=== PATIENT | male | born 1975 | race Caucasian/White ===

== ENCOUNTER 2017-01-14 14:00 | Inpatient (IN) | payer OTHER ==
--- NOTE | ~2017-01-14 | PA ---
Unit #: [id number] #: [id number] Patient: KHLOE GRAY [id number] [facility] [address] [place] [address] [id number] MR#: [id number] NAME: KHLOE GRAY. ROOM: [facility] Age: 42 Sex: M Admission Date: 01/14/2017 : 1975 Date of Assessment: 01/15/2017 Attending Physician: Khloe Montoya M.D. Admitting Physician: Khloe Montoya M.D. Primary Care Physician: Tamanna Doctor Not In System PSYCHIATRIC ASSESSMENT DATE OF ASSESSMENT 01/15/2017. INFORMANTS Patient, reliable; OLOP, reliable. CHIEF COMPLAINT Opioid withdrawal. HISTORY OF PRESENT ILLNESS Mr. Gray is a 42-year-old man, who reports he has been on pain medications for 10 years due to significant history of back pain and has been taking Xanax 2 mg b.i.d. for years for anxiety. He stopped taking his morphine and Roxicet in November and began using Suboxone, disliking the long-term effects of opioids. He has had increasing detox symptoms after he stopped Suboxone and has been nauseous with multiple GI symptoms. He has some depression, but denied active suicidal ideation, intent, or plan. He was admitted for polysubstance detox. PAST PSYCHIATRIC HISTORY As noted, the patient has an iatrogenic addiction to opioids. He reports a history of some depression and anxiety and is taking alprazolam 2 mg b.i.d. from his primary care physician. FAMILY PSYCHIATRIC HISTORY None reported. SOCIAL HISTORY The patient denied a history of childhood abuse or neglect. He is a single, heterosexual man. He reports a previous DUI charge due to being over sedated on his opioids, but no other criminal history. He is a high-school graduate, who is working as a truck terminal manager, but is in the process of trying to get long-term disability. He is currently living with his mother with impaired financial stability. PAST MEDICAL HISTORY Significant for hypertension, arthritis, anemia, chronic back pain and low testosterone. MEDICATIONS Lisinopril, metoprolol, Lasix, potassium, vitamin D, folic acid, gabapentin and Phenergan. Unit #: [id number] #: [id number] Patient: KHLOE GRAY ALLERGIES Nonsteroidal antiinflammatories. SUBSTANCE ABUSE HISTORY The patient has a history of being on chronic opioids, but has no history of abuse or dependence. MENTAL STATUS EXAMINATION The patient presented as a mildly disheveled man who appeared his stated age. He was polite and cooperative with the examination. His speech was spontaneous and easily understood. Musculoskeletal examination demonstrated mild psychomotor agitation. His mood was anxious with a congruent affect. He was alert and fully oriented. His memory and concentration were intact. His thought processes were goal directed with no active psychosis. He denied suicidal ideation, intent, or plan. Insight and judgment were fair. Fund of knowledge and abstraction, fair. ASSETS AND LIABILITIES The patient has stable housing, is employable and is applying for disability. Liabilities include physician-induced addiction and lack of other treatment. ADMITTING DIAGNOSES AXIS I: 1. Opioid dependence with withdrawal, uncomplicated, F11.23. 2. Benzodiazepine dependence. 3. Depressive disorder, not otherwise specified. AXIS II: No diagnosis. AXIS III: Chronic pain, hypertension, degenerative disk disease, early congestive heart failure, history of nausea, and history of neuropathy. AXIS IV: AXIS V: PSYCHIATRIC PLAN The patient was admitted and placed on the opioid detox protocol. Suboxone was discontinued. After discussion of options with the patient, I elected to continue alprazolam 2 mg twice daily, unchanged and continue his home medications, otherwise unchanged. We will consult our medical group for pain control options. TREATMENT GOALS Establishment of opioid free status, improvement in insight, and improvement in coping skills. DISCHARGE PLAN Follow up with primary care physician. ESTIMATED LENGTH OF STAY 5 days. Dictated by... Khloe Montoya M.D. [facility] Unit #: [id number] #: [id number] Patient: KHLOE GRAY TD: 01/16/2017 01:46 JOB #: [id number] PSYCHIATRIC ASSESSMENT Page 1 of 1 X Khloe Montoya MD PSYCHIATRIC ASSESSMENT
--- NOTE | ~2017-01-14 | DS ---
Unit #: [id number] #: [id number] Patient: KHLOE GREEN [id number] [place] [address] [id number] I MR#: [id number] NAME: KHLOE GREEN. ROOM: [facility] Age: 42 Sex: M Admission Date: 01/14/2017 : 1975 Discharge Date: 01/19/2017 Attending Physician: Khloe Montoya M.D. Primary Care Physician: Generic Doctor Not In System DISCHARGE SUMMARY REASON FOR ADMISSION Khloe is a 42-year-old man who has been on pain medications for the past 10 years and Xanax for about the same time for anxiety. The patient reported he has been trying to get off his pain medications, not liking their long-term effects, and had switched from morphine and Roxicet to Suboxone. He has stopped this medication and has had increasing detox symptoms. He had some depression, but no suicidal ideation, intent, or plan and was admitted for opioid detox. DIAGNOSTIC STUDIES LABORATORY RESULTS: CMP demonstrated no significant elevation in liver functions. Urine drug screen was positive for benzodiazepines. HOSPITAL COURSE Khloe was admitted and placed on the opioid detox protocol. Alprazolam was continued unchanged to avoid polysubstance detox and the patient was provided with Seroquel 100 mg at bedtime and Remeron 30 mg at bedtime for depression and insomnia. He tolerated these medications reasonably well, although his sleep remained somewhat disturbed due to his ongoing detox symptoms. He was affable and pleasant throughout the hospitalization. On the date of discharge, he contracted for safety in the outpatient setting. DISCHARGE DIAGNOSES AXIS I: Opioid dependence with withdrawal, uncomplicated; major depressive disorder; benzodiazepine dependence. AXIS II: No diagnosis. AXIS III: Chronic pain, hypertension, degenerative disk disease, history of neuropathy, history of early congestive heart failure. AXIS IV: AXIS V: DISCHARGE INSTRUCTIONS Follow up with primary care physician. DISCHARGE MEDICATIONS Remeron 30 mg at bedtime for depression and Seroquel 100 mg at bedtime for insomnia. All primary care medicines were continued unchanged. CONDITION AT DISCHARGE Improved. Unit #: [id number] #: [id number] Patient: KHLOE GREEN PROGNOSIS Fair to good. DIET AND ACTIVITY Per primary care doctor. Dictated by... Khloe Montoya M.D. [facility]/modl TD: 01/20/2017 00:18 JOB #: [id number] DISCHARGE SUMMARY Page 1 of 1 X Khloe Montoya MD DISCHARGE SUMMARY
--- NOTE | ~2017-01-14 | PN ---
Unit #: [id number] #: [id number] Patient: KHLOE GRAY [id number] [facility] [address] [place] [address] [id number] I MR#: [id number] NAME: KHLOE GRAY. ROOM: 86 Age: 42 Sex: M Admission Date: 01/14/2017 : 1975 Attending Physician: Khloe Montoya M.D. Admitting Physician: Khloe Montoya M.D. Primary Care Physician: Generic Doctor Not In System [facility] PROGRESS NOTES DATE OF SERVICE 01/16/2017 DISCUSSION Mr. Gray continues to complain of significant difficulty sleeping. He is having multiple opiate detox symptoms today including cramping, diarrhea, nausea, insomnia, and other issues that. He is pleasant and cooperative otherwise. He is alert and fully oriented. His memory and concentration are intact. His thought processes are logical with no psychosis and no active SI. He does wish to be reinitiated on an antidepressant medication as he says he has been off of one for a long time and feels that would help his mood. ASSESSMENT Opioid dependence, major depression. PLAN We will change trazodone to Seroquel 100 mg at bedtime as needed for insomnia to improve control of insomnia related to detox. I will add Remeron 30 mg at bedtime for depression. Dictated by... Khloe Montoya M.D. [facility]/to TD: 01/17/2017 15:23 JOB #: [id number] [facility] PROGRESS NOTES Page 1 of 1 X Khloe Montoya MD PROGRESS NOTE
--- NOTE | ~2017-01-14 | HP ---
Unit #: [id number] #: [id number] Patient: LUIS ALBETRO GREEN [id number] [facility] [address] [place] [address] [id number] I MR#: [id number] NAME: LUIS ALBERTO GREEN. ROOM: 86 Age: 42 Sex: M Admission Date: 01/14/2017 : 1975 Attending Physician: Luis Alberto Montoya M.D. Admitting Physician: Luis Alberto Montoya M.D. Primary Care Physician: Generic Doctor Not In System HISTORY AND PHYSICAL HISTORY OF PRESENT ILLNESS The patient is a 42-year-old male who has been [facility]. PAST MEDICAL HISTORY 1. Chronic back pain. 2. Degenerative disk disease. 3. Hypertension. 4. Reports early congestive heart failure. 5. Neuropathy. 6. Nausea. PAST SURGICAL HISTORY Denies. ALLERGIES No known allergies. HOME MEDICATIONS 1. Neurontin 600 mg p.o. 4 times daily. 2. Lasix 3 mg p.o. daily. 3. Lisinopril 20 mg p.o. daily. 4. Metoprolol tartrate 50 mg p.o. b.i.d. 5. Potassium 20 mEq daily. 6. Vitamin D 50,000 units p.o. every 7 days. 7. Folic acid 1 mg p.o. daily. 8. Phenergan 25 mg p.o. q. 6 hours p.r.n. nausea. 9. Suboxone 8 mg 2 strips sublingual daily. 10. Xanax 2 mg p.o. b.i.d. FAMILY HISTORY Noncontributory. SOCIAL HISTORY The patient lives with his mother. He denies tobacco use. He said he has not used alcohol in many years. He does not endorse using p.o. morphine. REVIEW OF SYSTEMS CONSTITUTIONAL: Denies fever or chills. HEENT: Denies sore throat, ear pain, or runny nose. CARDIOVASCULAR: Denies chest pain, irregular heart rhythm, or palpitations. CHEST: Denies shortness of breath or cough. No hemoptysis. Unit #: [id number] #: [id number] Patient: LUIS ALBERTO GREEN GI: Denies vomiting, diarrhea, or chronic constipation. Endorses nausea. ENDOCRINE: Denies increased thirst or urination. Denies any significant recent weight loss of gain. : Denies dysuria, frequency, or hematuria. SKIN: Denies any rashes. HEMATOLOGIC: Denies increased bleeding or bruising. MUSCULOSKELETAL: Denies any hot, swollen joints. No generalized pain. NEUROLOGIC: Denies problems with speech or vision, numbness, weakness, or tingling. Denies loss of bowel or bladder control. PHYSICAL EXAMINATION GENERAL: The patient is awake, alert, in no acute distress. VITAL SIGNS: Temperature 98.5, heart rate 75, respirations 16, blood pressure 130/79. He is 5 feet 8 inches and weighs 253 pounds. HEENT: Head is atraumatic, normocephalic. Pupils are equal, round, and reactive. Extraocular movements are intact. No drainage from ears or nose. NECK: Supple. Trachea is midline. HEART: Regular rate and rhythm. LUNGS: Clear. ABDOMEN: Soft, nontender, nondistended. : Not done. SKIN: Warm, dry without any rashes or lesions. EXTREMITIES: No clubbing, cyanosis, or edema. NEUROLOGIC: Patient is awake. Cranial nerves II through XII are intact. No focal deficits. Sensory and motor function: Grossly normal. Coordination: Gait normal. Deep tendon reflexes intact. IMPRESSION 1. Psychiatric admission. 2. Hypertension. RECOMMENDATIONS PSYCHIATRIC: Per psychiatrist. MEDICAL: Hypertension: We will continue home medicine. I see no contraindication to patient participating in the facility activities. MEDICAL PROGNOSIS Fair. MEDICAL CONDITION Stable. Dictated by... Sonia Jj A.P.R.N. for Iesha Matthews TD: 01/15/2017 11:16 JOB #: [id number] Unit #: [id number] #: [id number] Patient: LUIS ALBERTO GREEN HISTORY AND PHYSICAL Page 1 of 1 X Sonia Jj APRN X HISTORY AND PHYSICAL
--- NOTE | ~2017-01-14 | PN ---
Unit #: [id number] #: [id number] Patient: KHLOE GREEN [id number] [facility] [address] [place] [address] [id number] I MR#: [id number] NAME: KHLOE GREEN. ROOM: P186 Age: 42 Sex: M Admission Date: 01/14/2017 : 1975 Attending Physician: Khloe Montoya M.D. Admitting Physician: Khloe Montoya M.D. Primary Care Physician: Generic Doctor Not In System [facility] PROGRESS NOTES DATE OF SERVICE: 01/18/2017 DISCUSSION Khloe continues to have [id number] detox symptoms today. He reports ongoing difficulty sleeping. His mood is anxious with a brighter affect. He is alert and fully oriented. His memory and concentration are intact. His thought processes are logical with no active psychosis. He continues to deny suicidal ideation. ASSESSMENT Opioid dependence. PLAN We will continue Seroquel for insomnia and continue the detox protocol. Dictated by... Khloe Montoya M.D. [facility]/katie TD: 01/19/2017 22:32 JOB #: [id number] [facility] PROGRESS NOTES Page 1 of 1 X Khloe Montoya MD PROGRESS NOTE
[2017-01-15 10:22] LABS: ALBUMIN SERUM 4.6 g/dL (3.5-5.0); BILIRUBIN,TOTAL 0.6 mg/dL (0.2-2.0); CALCIUM SERUM 9.6 mg/dL (8.4-10.2); GLOM FILT RATE Estimated 92.4 mL/min (>60); POTASSIUM 4.2 mmol/L (3.5-5.1)
[2017-01-18 12:44] LABS: AMPHETAMINE NEG (NEG); BARBITURATES NEG (NEG); BENZODIAZEPINES POS (NEG); COCAINE NEG (NEG); MARIJUANA NEG (NEG); OPIATES NEG (NEG); TRICYCLIC ANTIDEPRESSANTS NEG (NEG); U METHADONE NEG (NEG)
== END 2017-01-19 12:50 | DRG 897 ==
LOC: P1E 16:40
PROVIDERS: Psychiatry & Neurology Psychiatry
DX: F11.23 Opioid dependence with withdrawal (principal); F13.20 Sedative, hypnotic or anxiolytic dependence, uncomplicated; I50.9 Heart failure, unspecified; F41.9 Anxiety disorder, unspecified; I10 Essential (primary) hypertension; M19.90 Unspecified osteoarthritis, unspecified site; M54.9 Dorsalgia, unspecified; G89.29 Other chronic pain; F32.9 Major depressive disorder, single episode, unspecified
CPT/HCPCS: 80053; 80307